=== PATIENT | female | born 1960 | race Caucasian/White ===

== ENCOUNTER → 2021-08-09 08:08 | Outpatient (CLI) | payer OTHER, SELFPAY ==
--- NOTE | 2021-08-09 | DI.RAD.S_ITS ---
PROCEDURE: FL UPPER GI SMALL BOWEL W AIR COMPARISON: [facility], CT, ABDOMEN/PELVIS WITH CONTRAST, 09/24/2015, 13:38. INDICATIONS: Gastroparesis Technique: Routine double-contrast upper GI series with small-bowel follow-through was performed. After administration of oral effervescent granules, oral contrast was administered and imaging of the patient's esophageal motility was observed. Ship'S Pilot images were acquired. Patient was then placed in recumbent positions for single contrast phase of the examination. A standard barium tablet was also administered. Contrast was observed to pass to the level of the colon. Targeted evaluation of the terminal ileum and cecum was performed with image documentation. FINDINGS: There was abnormal esophageal motility with a few episodes of esophageal dysmotility resulting in retrograde flow of oral contrast as well as delayed transit of oral contrast into the stomach. Patient was able to pass a standard barium tablet without difficulty. Upon preparing for evaluation gastroesophageal reflux, there is a moderate amount of oral contrast visualized within the esophagus when contrast was confirmed to be in the stomach prior to repositioning the patient. There after, confirmation of gastroesophageal reflux could could not be elicited with stress maneuvers. There is normal appearance of esophageal, stomach, small bowel, and proximal colonic/cecal and mucosa. Of note, there were oval lucencies noted in the esophagus on the double-contrast images which are favored to represent bubbles of air as they moved distally during real-time imaging. No evidence for suspicious intraluminal mass, strictures, or extra luminal mass effect. No definite hiatal hernia was identified. IMPRESSION: 1. A FEW EPISODES OF ESOPHAGEAL DYSMOTILITY RESULTING IN RETROGRADE FLOW AND DELAYED TRANSIT OF ORAL CONTRAST INTO THE STOMACH. OVERALL TRANSIT TIME OF INGESTED ORAL CONTRAST FROM THE STOMACH TO : WAS WITHIN NORMAL LIMITS. 2. SUSPECTED GASTROESOPHAGEAL REFLUX OF CONTRAST. 3. OTHERWISE, UNREMARKABLE UPPER GI SERIES AND SMALL-BOWEL FOLLOW-THROUGH. Dictated by: Cali Jacob M.D. on 08/09/2021 at 15:48 Approved by: Cali Jacob M.D. on 08/09/2021 at 16:02
== END ==
PROVIDERS: Family Provider Family Medicine; PCP Family Medicine; Referring Provider Family Medicine; Visit Provider Family Medicine
DX: K31.84 Gastroparesis (principal); G64 Other disorders of peripheral nervous system; K22.4 Dyskinesia of esophagus
CPT/HCPCS: 74246; 74248

== ENCOUNTER 2022-07-22 11:13 | Outpatient (RCR) | payer OTHER, SELFPAY ==
--- NOTE | 2022-07-22 15:57 | PT.OIE ---
Current Diagnoses Allergic rhinitis, unspecified (07/22/22) Dizziness and giddiness (07/22/22) Visit Care Team Role Provider Type Soto Macias DO Family Provider Non-Staff Primary Care Provider Specialty: Family Practice Address: [address] [place] [address], [phone] Email: Jamie Kaur MD Attending Provider Physician Referring Provider Specialty: Ear, Nose, Throat Address: [address] [place] [address], [id number] Email: [email or web address] Physical Therapy Initial Evaluation PT-OP-A Visit Information Start: 07/21/22 16:03 Freq: Status: Active Protocol: Document 07/22/22 11:30 AMB (Rec: 07/22/22 12:44 AMB [id number]) Out-Patient Physical Therapy Visit Information Visit Information Visit Type Initial Evaluation Visit Start Time 11:15 Visit Stop Time 12:15 Total Visit Minutes 60 Visit Number 1 PT-OP-B Current Condition Start: 07/21/22 16:03 Freq: Status: Active Protocol: Document 07/22/22 11:30 AMB (Rec: 07/22/22 12:39 AMB [id number]) Current Condition History of Current Condition Onset Date a year and a half Current Complaints dizziness History of Current Condition Long QT syndrome. Tinnitis for years. Episode of dizziness 12 years ago. Constant dizziness for the last year and a half has recently been diagnosed with small fiber neuropathy. Spinning and nausea which lasts for several hours afterwards moving the head to lie down flat or look up. Did have VNG which is unavailble for this therapist to review but pt states it showed central signs. 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 Has seen 5 ENTs and at least 2 neurologists. Personal Factors Other Personal Factors That May Effect small fiber neruropathy Therapy/Recovery PT-OP-O Vestibular Start: 07/21/22 16:03 Freq: Status: Active Protocol: Document 07/22/22 11:30 AMB (Rec: 07/22/22 12:44 AMB [id number]) Vestibular Assessment Visual Testing Smooth Pursuits Horizontal WFL Smooth Pursuits Vertical WFL Thrust Head Negative DVA (Line Degradation) 2 Vestibulo-Ocular Reflex (VOR1) Negative Vestibular Function Tests mCTSIB Position 1 30 mCTSIB Position 2 30 mCTSIB Position 3 30 mCTSIB Position 4 30.. ankle sway Comments Vestibular Comments Pt able to ambulate with both vertical and horizontal head turns without veering, was careful to keep movements small PT-OP-T Assessment and Plan Start: 07/21/22 16:03 Freq: Status: Active Protocol: Document 07/22/22 11:15 AMB (Rec: 07/22/22 18:49 AMB [id number]) Physical Therapy Assessment Rehab Potential Rehabilitation Potential Good Goals One Impairment dizziness Short Term Goal (STG) Treasure will be independent with a habituation HEP for her dizziness. STG Duration 1 week Assessment Summary Assessment Treasure presents with long standing dizziness and nausea with lying down flat and looking up. Has had extensive testing including positional testing which was horrible per her report, so did not repeat at this evaluation. Pt states that since being referred by ENT a neurologist diagnosed her with small fiber neuropathy and she feels this is the source of her dizziness. With the limited vestibular eval we did not really reproduce her symptoms since we did not make her lie down flat. Pt feels she currently has a good plan of how to continue to work on her balance at the gym. Did encourage pt to avoid completely avoiding lying flat or looking up, and a couple times a day to try small motions to try to habituate herself to the dizziness. Otherwise pt not really interested in physical therapy at this time, so discharged patient at time of evaluation. Physical Therapy Plan Frequency and Duration Frequency of Treatment 1x/Week Duration of treatment (weeks) 1 Plan of Care Start Date 07/22/22 Plan of Care End Date 07/29/22 Therapeutic Interventions Therapeutic Interventions Home Exercise Program,Manual Therapy,Neuromuscular Re- education,Therapeutic Activities,Therapeutic Exercises,Vestibular Rehabilitation
--- NOTE | 2022-07-22 15:58 | PT.OPPOC ---
Physical, Occupational & Speech Therapy At [facility] Current Diagnoses Allergic rhinitis, unspecified (07/22/22) Dizziness and giddiness (07/22/22) Visit Care Team Role Provider Type Soto Macias DO Family Provider Non-Staff Primary Care Provider Specialty: Family Practice Address: [address] [place] [address], [phone] Email: Jamie Kaur MD Attending Provider Physician Referring Provider Specialty: Ear, Nose, Throat Address: [address] [place] [address], [phone] Email: [email or web address] Plan Of Care PT-OP-T Assessment and Plan Start: 07/21/22 16:03 Freq: Status: Active Protocol: Document 07/22/22 11:15 AMB (Rec: 07/22/22 18:49 AMB [id number]) Physical Therapy Assessment Rehab Potential Rehabilitation Potential Good Goals One Impairment dizziness Short Term Goal (STG) Treasure will be independent with a habituation HEP for her dizziness. STG Duration 1 week Assessment Summary Assessment Treasure presents with long standing dizziness and nausea with lying down flat and looking up. Has had extensive testing including positional testing which was horrible per her report, so did not repeat at this evaluation. Pt states that since being referred by ENT a neurologist diagnosed her with small fiber neuropathy and she feels this is the source of her dizziness. With the limited vestibular eval we did not really reproduce her symptoms since we did not make her lie down flat. Pt feels she currently has a good plan of how to continue to work on her balance at the gym. Did encourage pt to avoid completely avoiding lying flat or looking up, and a couple times a day to try small motions to try to habituate herself to the dizziness. Otherwise pt not really interested in physical therapy at this time, so discharged patient at time of evaluation. Physical Therapy Plan Frequency and Duration Frequency of Treatment 1x/Week Duration of treatment (weeks) 1 Plan of Care Start Date 07/22/22 Plan of Care End Date 07/29/22 Therapeutic Interventions Therapeutic Interventions Home Exercise Program,Manual Therapy,Neuromuscular Re- education,Therapeutic Activities,Therapeutic Exercises,Vestibular Rehabilitation Plan of Care Dates Plan of Care Start Date 07/22/22 Plan of Care End Date 07/29/22 Electronically Signed by: Damari Elise, PT 08/08/22 8543 If you are in agreement with this Plan of Care, please return a signed and dated copy. I have reviewed this Plan of Care and certify that the skilled therapy services above are required to meet the patient?s needs. Physician Signature Date Printed Name and Credentials Clinical Instructor Signature Printed Name and Credentials
--- NOTE | 2022-08-08 15:58 | PT.OPDS ---
Current Diagnoses Allergic rhinitis, unspecified (07/22/22) Dizziness and giddiness (07/22/22) Visit Care Team Role Provider Type Soto Macias DO Family Provider Non-Staff Primary Care Provider Specialty: Family Practice Address: [address] [place] [address], [phone] Email: Jamie Kaur MD Attending Provider Physician Referring Provider Specialty: Ear, Nose, Throat Address: [address] [place] [address], [id number] Email: [email or web address] Visit Number Visit Number 1 Discharge Summary PT-OP-B Current Condition Start: 07/21/22 16:03 Freq: Status: Active Protocol: Document 07/22/22 11:30 AMB (Rec: 07/22/22 12:39 AMB [id number]) Current Condition History of Current Condition Onset Date a year and a half Current Complaints dizziness History of Current Condition Long QT syndrome. Tinnitis for years. Episode of dizziness 12 years ago. Constant dizziness for the last year and a half has recently been diagnosed with small fiber neuropathy. Spinning and nausea which lasts for several hours afterwards moving the head to lie down flat or look up. Did have VNG which is unavailble for this therapist to review but pt states it showed central signs. 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 Has seen 5 ENTs and at least 2 neurologists. Personal Factors Other Personal Factors That May Effect small fiber neruropathy Therapy/Recovery PT-OP-O Vestibular Start: 07/21/22 16:03 Freq: Status: Active Protocol: Document 07/22/22 11:30 AMB (Rec: 07/22/22 12:44 AMB [id number]) Vestibular Assessment Visual Testing Smooth Pursuits Horizontal WFL Smooth Pursuits Vertical WFL Thrust Head Negative DVA (Line Degradation) 2 Vestibulo-Ocular Reflex (VOR1) Negative Vestibular Function Tests mCTSIB Position 1 30 mCTSIB Position 2 30 mCTSIB Position 3 30 mCTSIB Position 4 30.. ankle sway Comments Vestibular Comments Pt able to ambulate with both vertical and horizontal head turns without veering, was careful to keep movements small PT-OP-T Assessment and Plan Start: 07/21/22 16:03 Freq: Status: Active Protocol: Document 07/22/22 11:15 AMB (Rec: 07/22/22 18:49 AMB [id number]) Physical Therapy Assessment Rehab Potential Rehabilitation Potential Good Goals One Impairment dizziness Short Term Goal (STG) Treasure will be independent with a habituation HEP for her dizziness. STG Duration 1 week Assessment Summary Assessment Treasure presents with long standing dizziness and nausea with lying down flat and looking up. Has had extensive testing including positional testing which was horrible per her report, so did not repeat at this evaluation. Pt states that since being referred by ENT a neurologist diagnosed her with small fiber neuropathy and she feels this is the source of her dizziness. With the limited vestibular eval we did not really reproduce her symptoms since we did not make her lie down flat. Pt feels she currently has a good plan of how to continue to work on her balance at the gym. Did encourage pt to avoid completely avoiding lying flat or looking up, and a couple times a day to try small motions to try to habituate herself to the dizziness. Otherwise pt not really interested in physical therapy at this time, so discharged patient at time of evaluation. Physical Therapy Plan Frequency and Duration Frequency of Treatment 1x/Week Duration of treatment (weeks) 1 Plan of Care Start Date 07/22/22 Plan of Care End Date 07/29/22 Therapeutic Interventions Therapeutic Interventions Home Exercise Program,Manual Therapy,Neuromuscular Re- education,Therapeutic Activities,Therapeutic Exercises,Vestibular Rehabilitation
== END 2022-08-11 11:20 | disposition home or self-care (01) ==
LOC: PHYS 11:13
PROVIDERS: Family Provider Family Medicine; PCP Family Medicine; Referring Provider Otolaryngology; Visit Provider Otolaryngology
DX: J30.9 Allergic rhinitis, unspecified (principal); R42 Dizziness and giddiness
CPT/HCPCS: 97161

== ENCOUNTER 2022-09-08 06:39 | Day surgery (SDC) | payer OTHER, SELFPAY ==
[2022-09-05 07:27] VITALS: BMI 20.6
[2022-09-08] VITALS (9 sets, daily range): BP systolic 111–136; BP diastolic 58–71; PULSE 50–61; RESP 11–18; TEMP 36.1–36.3; O2SAT 98–100; BMI 20.1
--- NOTE | 2022-09-08 | PATH_ITS ---
[facility] Accession Number: [id number] No. of containers..02 Tissue . 01 Material submitted: . PART A: endocervix - ENDOCERVICAL CURETTINGS PART B: cervix - CERVICAL POLYP . 01 Diagnosis: A. Endocervix, Curettage: Benign atrophic ectocervical and endocervical epithelium; negative for dysplasia. Scant rare strip of possible inactive-appearing endometrial epithelium. . B. Uterine Cervix, Polyp, Biopsy: Slightly polypoid denuded atrophic squamous mucosa with prominent stromal vessels. Negative for dysplasia and malignancy. MRV 09/11/2022 1313 Local . 01 Comment: Specimen B is also reviewed by Dr. Aracelis Radford, who concurs with the given interpretation. Although the vasculature is prominent, additional features diagnostic of polyp are not appreciated. . 01 Electronically signed: . Ilda Freeman MD, Pathologist NPI- [id number] . 01 Gross description: . Part A: ENDOCERVICAL CURETTINGS: Received in formalin are minute fragments of mucoid and hemorrhagic material measuring 0.7 x 0.4 x 0.1 cm in aggregate. Submitted in toto in 1 cassette. Part B: CERVICAL POLYP: Received in formalin is 1 fragment(s) of ghosh, soft tissue measuring 1.8 x 1.7 x 0.2 cm which is serially sectioned and submitted entirely in 2 cassette(s) /CPE 09/09/2022 0836 Local . 01 Pathologist provided ICD-10: N95.0, Z98.890 . 01 CPT . 943594, 926616 Specimen Comment: A courtesy copy of this report has been sent to [phone] Performed at: 01 [facility] [address] [place] [address], [place], [place] [id number] MD Melo Raymond MD Phone: [phone]
[2022-09-08] MEDS: LACTATED RINGERS 1,000 ML 100 ML IV (07:16)
--- NOTE | 2022-09-08 07:37 | SUR.OPER ---
Lithotomy on padded OR bed, head on pillow, arms secured on padded arm boards at <90 degrees abduction. Legs secured in padded yellow fins stirrups.
--- NOTE | 2022-09-08 07:52 | P.HPOB_ITS ---
History of Present Illness History of Present Illness Reason for admission: vaginal bleeding Narrative: Treasure Ramirez is a 62 year old female 3 para 3 with postmenopausal bleeding, endometrial polyp, and ectropion. She is here for removal of the endometrial polyp and a LEEP to remove the ectropion. COUNTS INCLUDE 234 BEDS AT THE [facility] Surgical History (Updated 09/05/22 @ 07:44 by Jessie Cruz RN) History of endometrial ablation Social History household members: spouse Smoking Status: Never smoker alcohol intake: never Meds Home Medications and Allergies Home Medications Medication Instructions Recorded Confirmed Type nadolol 10 mg PO TID 12/18/19 09/08/22 History naltrexone 4.5 mg PO DAILY 09/08/22 09/08/22 History Allergies Allergy/AdvReac Type Severity Reaction Status Date / Time iodine Allergy Hives Verified 09/08/22 06:55 QT prolonging drugs Allergy cardiac Uncoded 09/08/22 06:55 arrest Exam Vital Signs (past 8 hours): - 09/08/22 07:03 Temperature 97.0 F L Pulse Rate 57 L Respiratory Rate 16 Blood Pressure 136/70 Pulse Oximetry 100 Oxygen Delivery Method Room Air Oxygen Delivery Method Room Air Narrative Exam Narrative: HEENT: No thyromegaly, no anterior cervical or supraclavicular lymphadenopathy. Lungs:Clear to auscultation bilaterally, no wheezes. Cardiovascular: Regular rate and rhythm, no murmurs, rubs, or gallops. Abdomen: No scars. No hepatosplenomegaly. No masses palpable. External genitalia: Normal Vagina: Normal Cervix: Ectropion, endocervical polyp Bimanual exam: 6 Week size uterus. Mobile.] Assessment & Plan Assessment & Plan narrative: Assessment: 62-year-old 3 para 3 with postmenopausal bleeding, endocervical polyp, and ectropion Plan: Removal of endometrial polyp and excision of ectropion The risks, benefits, and alternatives to the procedure were explained to the patient. The risks including bleeding and infection. She understands these risks and agrees to proceed. A full par Q was held and consent form was signed. Time Spent With Patient Time with patient: less than 30 minutes
--- NOTE | 2022-09-08 07:54 | PM.PREOP ---
Pre-operative Note COVID-19 Criteria for continued procedure: Non-surgical alternatives not available or appropriate per current SOC Interval Note History & Physical reviewed/Exam performed by Physician: Yes Changes to H&P: No H&P completed within 30 days and has changed as indicated here:: 09/08/22
[2022-09-08] MEDS: CEFAZOLIN 2 GM/100 ML PREMIX 100 ML IV (07:59)
[2022-09-08] MEDS: HYDROCODONE/ACET 5/325 TABLET 1 TAB PO (09:22)
--- NOTE | 2022-09-08 12:34 | PM.GYNOP.1 ---
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 After adequate LMA general anesthesia was achieved, she was placed in the dorsal lithotomy position, and prepped and draped in the usual fashion prep was used using baby shampoo. A plastic coated bivalve speculum was placed into the vagina. A plastic coated single-tooth tenaculum was placed on the anterior lip of the cervix. Endocervical curettings were obtained Using a large loop, with settings at 60 cut and 40 cautery, the ectocervix was excised. Ball cautery was used for hemostasis. The single-tooth tenaculum was removed from the anterior cervix. The plastic coated speculum was removed from the vagina. Three sources of suction were used. All personnel wore 3 M mask. on, lap, and instrument counts were correct x2. The patient tolerated the procedure well, and was taken to PACU in stable condition. Complications: none Post-operative Condition: stable Disposition: PACU Plan for aftercare: Home after recovery
== END 2022-09-08 09:44 | disposition home or self-care (01) ==
PROVIDERS: Family Provider Family Medicine; PCP Nurse Practitioner; Referring Provider Obstetrics & Gynecology; Visit Provider Obstetrics & Gynecology
PROC: 0UBC7ZZ Excision of Cervix, Via Natural or Artificial Opening (ICD-10-PCS; CPT 57522; principal; 2022-09-08 07:45)
DX: N95.0 Postmenopausal bleeding (principal); Z98.890 Other specified postprocedural states; N86 Erosion and ectropion of cervix uteri; N84.1 Polyp of cervix uteri
CPT/HCPCS: 57522; 82962; J0690; J1100; J2250; J2704; J3010

== ENCOUNTER → 2024-10-26 08:27 | Outpatient (CLI) | payer MEDICARE, OTHER, SELFPAY ==
--- NOTE | 2024-10-26 | PATH_ITS ---
Note [facility] Accession Number: [id number] TESTS RESULT FLAG UNITS REF RANGE LAB Clinician Provided Cytology Information No. of containers..01 Other (Miscellaneous) Source: RIGHT ANTERIOR THIGH/GROIN LYMPHOCELE DIAGNOSIS: RIGHT ANTERIOR THIGH/GROIN LYMPHOCELE, ASPIRATION. NEGATIVE FOR MALIGNANT CELLS. FEW LYMPHOCYTES ARE PRESENT. THIS INTERPRETATION INCLUDES EVALUATION OF A CELL BLOCK. Pathologist ICD10: 01 I89.8 Signed out by: Phoenix Adam MD, Pathologist NPI- [id number] Performed by: Michael Molina, Design Sales Consultant ([facility]) Gross description: 4 CC, YELLOW, CLEAR RECEIVED: FRESH IN 10 ML SYRINGE. /VDU 10/28/2024 0707 Local FLAG LEGEND: L-Low Normal,H-High Normal,LL-Alert Low,HH-Alert High <-Panic Low,>-Panic High,A-Abnormal,AA-Critical Abnormal Performed at: 01 =Z [facility] [address], [place] [address] Melo Raymond MD, Performed at: 01 [facility] [address], [place], [place] [id number] MD Melo Raymond MD Phone: [phone]
--- NOTE | 2024-10-26 08:29 | DI.US.S_ITS ---
PROCEDURE: US ASPIRATION CYST COMPARISON: None. INDICATIONS: LYMPHOCELE FINDINGS: Risks and benefits were discussed with the patient. Informed consent was obtained. Right anterior thigh/groin was prepped in the normal sterile fashion. 1 percent lidocaine was used for anesthetic. 22 gauge needle was inserted into the fluid collection and 4 cc of clear yellow fluid was aspirated. No immediate complication. IMPRESSION: Successful aspiration of 4 cc of clear yellow fluid from right anterior thigh/groin lymphocele. Dictated by: Leighton Madrigal M.D. on 10/26/2024 at 11:16 Approved by: Leighton Madrigal M.D. on 10/26/2024 at 11:18
== END ==
LOC: US 08:28
PROVIDERS: Family Provider Family Medicine; PCP Nurse Practitioner; Referring Provider Nurse Practitioner; Visit Provider Nurse Practitioner
DX: I89.8 Other specified noninfective disorders of lymphatic vessels and lymph nodes (principal)
CPT/HCPCS: 10005